=== PATIENT | female | born 1995 | race Caucasian/White ===

== ENCOUNTER 2016-05-11 11:16 | Day surgery (SDC) | payer OTHER ==
[~2016-05-11 11:16] MED LIST: ACTIVATED CHARCOAL; INHALER
[2016-05-11 12:50] LABS: HCT-HEMATOCRIT 35.7 % (34.0-49.0); HGB-HEMOGLOBIN 11.7 gm/dl (12.0-15.5); MCV (MEAN CELL VOLUME) 85.4 fl (82.0-96.0)
== END 2016-05-11 17:20 ==
LOC: SHSB 11:16 → ORW 13:36 → PACU 15:13 → SHSB 16:00
PROVIDERS: Anesthesiology
PROC: 0FT44ZZ Resection of Gallbladder, Percutaneous Endoscopic Approach (ICD-10-PCS; principal; 2016-05-11)
PROC: 8E0W4CZ Robotic Assisted Procedure of Trunk Region, Percutaneous Endoscopic Approach (ICD-10-PCS; 2016-05-11)
DX: K82.8 Other specified diseases of gallbladder (principal); K21.9 Gastro-esophageal reflux disease without esophagitis; J45.990 Exercise induced bronchospasm; Z98.890 Other specified postprocedural states
CPT/HCPCS: C9290; J0690; J7030